=== PATIENT | female | born 1930 | race African-American/Black ===

== ENCOUNTER 2021-09-29 20:06 | Inpatient (IN) | payer OTHER ==
[~2021-09-29] VITALS: Ht 162.6 cm; Wt 89.8 kg
[2021-09-29 21:50] LABS: BASOPHILS % 0.5 % (0.0-2.0); EOSINOPHILS % 0.1 % (0.0-5.0); HEMATOCRIT. 36.5 % (36.0-48.0); HEMOGLOBIN. 11.4 g/dL (12.0-16.0); LYMPHOCYTES % 7.8 % (20.0-50.0); MEAN CORPUSCULAR HEMOGLOBIN 24.2 pg (28.0-32.0); MEAN CORPUSCULAR VOLUME 77.3 fL (81.0-99.0); MEAN PLATELET VOLUME 9.5 fl (7.4-10.4); MONOCYTES % 5.1 % (2.0-8.0); NEUTROPHILS % 86.5 % (40.0-76.0); PLATELET 158 x1000/uL (130-400); RED BLOOD CELL COUNT 4.72 mill/uL (4.2-5.4); RED CELL DISTRIBUTION WIDTH 15.8 % (11.6-14.6)
[2021-09-29 21:58] LABS: CHLORIDE 109 mEq/L (98-107)
[2021-09-29 22:03] LABS: ETHANOL BLOOD < 10 mg/dL
[2021-09-29] MEDS ORDERED: PIPERACILLIN/TAZOBACTAM 3.375GM/50ML PREMIX IV ONE (22:15)
[2021-09-29 22:16] LABS: CLARITY URINE TURBID (CLEAR); COLOR URINE DARK YELLOW (YELLOW); KETONES URINE TRACE (NEGATIVE); LEUKOCYTE ESTERASE URINE 3+ (NEGATIVE); NITRITE URINE POSITIVE (NEGATIVE); OCCULT BLOOD URINE 3+ (NEGATIVE); PROTEIN URINE 3+ (NEGATIVE); SPECIFIC GRAVITY URINE 1.022 (1.005-1.030)
[2021-09-29 22:32] LABS: *AMPHETAMINES SCREEN URINE NEGATIVE (NEGATIVE); *BARBITURATES SCREEN URINE NEGATIVE (NEGATIVE); *BENZODIAZEPINES SCREEN URINE NEGATIVE (NEGATIVE); *COCAINE SCREEN URINE NEGATIVE (NEGATIVE)
[2021-09-29 22:33] LABS: CANNABINOID URINE SCREEN NEGATIVE (NEGATIVE); METHADONE URINE SCREEN NEGATIVE (NEGATIVE); OPIATES URINE SCREEN NEGATIVE (NEGATIVE); PHENCYCLIDINE URINE SCREEN NEGATIVE (NEGATIVE)
[2021-09-29] MEDS: PIPERACILLIN/TAZ 3.375G PREMIX 50 ML IV NR ×2 (23:00→23:26)
[2021-09-29] MEDS ORDERED: IOHEXOL-350 100 ML BOTTLE ONE (23:11)
[2021-09-29] MEDS ORDERED: VANCOMYCIN 1GM PMX (XELLIA) 200 ML IV NR (23:30)
[2021-09-29] MEDS ORDERED: NALOXONE HCL 0.4 MG/ML 1ML VIAL IV PRN (23:45)
[2021-09-30] MEDS ORDERED: ACETAMINOPHEN 325MG TABLET PO PRN ×2
[2021-09-30] MEDS ORDERED: CLONIDINE 0.1MG TABLET PO PRN
[2021-09-30] MEDS ORDERED: GUAIFENESIN 200MG/10ML SUGAR FREE UDC PO PRN
[2021-09-30] MEDS ORDERED: MAGNESIUM/ALUMINUM HYDROXIDE/SIMETHICONE 30ML UDC PO PRN
[2021-09-30] MEDS ORDERED: IPRATROPIUM/ALBUTEROL 0.5-3(2.5)MG/3ML NEB NEB PRN
[2021-09-30] MEDS ORDERED: HYDROCODONE/ACETAMINOPHEN 5/325MG TABLET PO PRN
[2021-09-30] MEDS ORDERED: ONDANSETRON HCL 4MG/2ML INJ IV PRN
[2021-09-30] MEDS ORDERED: VANCOMYCIN 750MG PMX (XELLIA) 150 ML IV SCH (02:00)
[2021-09-30] MEDS ORDERED: VANCOMYCIN 750MG PREMIX 150 ML IV SCH (02:00)
[2021-09-30] MEDS ORDERED: DEXAMETHASONE 10 MG/ML VIAL IV SCH (02:15)
[2021-09-30] MEDS: IPRATROPIUM/ALBUTEROL 0.5-3(2.5)MG/3ML NEB NEB SCH ×2 (04:25→13:32)
[2021-09-30 05:20] LABS: PHOSPHORUS 2.5 mg/dL (2.5-4.9)
[2021-09-30 06:04] LABS: HEMATOCRIT. 35.6 % (36.0-48.0); HEMOGLOBIN. 11.2 g/dL (12.0-16.0); MEAN CORPUSCULAR HEMOGLOBIN 24.7 pg (28.0-32.0); MEAN CORPUSCULAR VOLUME 78.4 fL (81.0-99.0); PLATELET 118 x1000/uL (130-400); RED BLOOD CELL COUNT 4.54 mill/uL (4.2-5.4); RED CELL DISTRIBUTION WIDTH 15.9 % (11.6-14.6)
[2021-09-30 06:58] LABS: PLATELET ESTIMATE SLIGHTLY DECREASED
[2021-09-30] MEDS ORDERED: CEFTRIAXONE 1 G PREMIX 50 ML IV SCH (09:00)
[2021-09-30] MEDS ORDERED: PIPERACILLIN/TAZOBACTAM 3.375 G in DEXTROSE 5% WATER 50 ML IV SCH (09:00)
[2021-09-30] MEDS ORDERED: DEXAMETHASONE 4MG/ML 1ML VIAL IV SCH (09:00)
[2021-09-30] MEDS ORDERED: AZITHROMYCIN 500 MG in DEXT 5% WATER 250 ML IV SCH (09:00)
[2021-09-30] MEDS: ENOXAPARIN 40MG/0.4ML SYR SUBCUT SCH (09:00)
[2021-09-30 10:19] LABS: BG BASE EXCESS -2.2 mmol/L (-2.0-2.0); BG CARBOXYHEMOGLOBIN 0.5 % (0.5-1.5); BG DEOXYHEMOGLOBIN 3.1 % (0.0-5.0); BG FRACTION INSPIRED OXYGEN 100; BG HCO3 ACT 20.9 mmol/L (22.0-26.0); BG METHEMOGLOBIN 0.2 % (0.0-1.5); BG OXYGEN SATURATION 96.9 % (92.0-98.5); BG OXYHEMOGLOBIN 96.2 % (94.0-97.0); BG PCO2 30.3 mmHg (35.0-45.0); BG PH 7.457 (7.350-7.450); BG PO2 92.7 mmHg (75.0-100.0); BG SAMPLE SITE RIGHT RADIAL; BG TOTAL HEMOGLOBIN 10.9 g/dL (12.0-18.0); BG VENT MODE MASK - NRB
[2021-09-30 12:00] VITALS: BP 157/64
[2021-09-30] MEDS: FUROSEMIDE 40MG/4ML VIAL IVP SCH (13:05)
[2021-09-30] MEDS: AZITHROMYCIN 500 MG in DEXT 5% WATER 250 ML IV SCH (13:21)
[2021-09-30] MEDS: ASPIRIN 81MG TABLET PO SCH (13:30)
[2021-09-30 13:37] LABS: BG BASE EXCESS -0.4 mmol/L (-2.0-2.0); BG CARBOXYHEMOGLOBIN 0.4 % (0.5-1.5); BG DEOXYHEMOGLOBIN 9.4 % (0.0-5.0); BG FRACTION INSPIRED OXYGEN 60; BG HCO3 ACT 23.5 mmol/L (22.0-26.0); BG METHEMOGLOBIN 0.2 % (0.0-1.5); BG OXYGEN SATURATION 90.5 % (92.0-98.5); BG PCO2 35.9 mmHg (35.0-45.0); BG PH 7.434 (7.350-7.450); BG PO2 61.7 mmHg (75.0-100.0); BG SAMPLE SITE RIGHT RADIAL; BG TOTAL HEMOGLOBIN 12.1 g/dL (12.0-18.0); BG VENT MODE HIGH FLOW
[2021-09-30 14:00] VITALS: BP 157/64
[2021-09-30] MEDS ORDERED: LISI40TA13 PO (14:34)
[2021-09-30] MEDS ORDERED: MULT-1146 PO (14:34)
[2021-09-30] MEDS ORDERED: LEVO50TA8 PO (14:34)
[2021-09-30] MEDS ORDERED: WARF2.5T83 PO (14:34)
[2021-09-30] MEDS ORDERED: AMLO5TAB88 PO (14:34)
[2021-09-30 16:00] VITALS: BP 119/82
[2021-09-30 20:00] VITALS: BP 137/62
[2021-09-30] MEDS: ATORVASTATIN CALCIUM 20MG TABLET PO SCH (20:19)
[2021-10-01 00:06] VITALS: BP 126/69
[2021-10-01 04:00] VITALS: BP 136/68
[2021-10-01 06:56] LABS: HEMATOCRIT. 32.9 % (36.0-48.0); HEMOGLOBIN. 10.6 g/dL (12.0-16.0); MEAN CORPUSCULAR HEMOGLOBIN 24.5 pg (28.0-32.0); MEAN CORPUSCULAR VOLUME 75.9 fL (81.0-99.0); MEAN PLATELET VOLUME 9.7 fl (7.4-10.4); PLATELET 132 x1000/uL (130-400); RED BLOOD CELL COUNT 4.33 mill/uL (4.2-5.4); RED CELL DISTRIBUTION WIDTH 15.1 % (11.6-14.6)
[2021-10-01] MEDS: LEVOTHYROXINE SODIUM 50MCG TABLET PO SCH (07:40)
[2021-10-01 08:00] VITALS: BP 144/75
[2021-10-01] MEDS: IPRATROPIUM/ALBUTEROL 0.5-3(2.5)MG/3ML NEB NEB SCH ×4 (08:00→22:05)
[2021-10-01] MEDS: AMLODIPINE 5MG TABLET PO SCH (08:38)
[2021-10-01] MEDS: ASPIRIN 81MG TABLET PO SCH (08:39)
[2021-10-01] MEDS: CEFTRIAXONE 1,000 MG in DEXTROSE 5% WATER 50 ML IV SCH (08:40)
[2021-10-01] MEDS: ENOXAPARIN 40MG/0.4ML SYR SUBCUT SCH (08:41)
[2021-10-01] MEDS: DEXAMETHASONE 10 MG/ML VIAL IV SCH (08:41)
[2021-10-01] MEDS: FUROSEMIDE 40MG/4ML VIAL IVP SCH (08:41)
[2021-10-01] MEDS ORDERED: CEFTRIAXONE 1,000 MG in DEXTROSE 5% WATER 50 ML IV SCH (09:00)
[2021-10-01 11:10] LABS: BG BASE EXCESS 3.9 mmol/L (-2.0-2.0); BG CARBOXYHEMOGLOBIN 0.7 % (0.5-1.5); BG DEOXYHEMOGLOBIN 5.4 % (0.0-5.0); BG FRACTION INSPIRED OXYGEN 50; BG HCO3 ACT 26.7 mmol/L (22.0-26.0); BG METHEMOGLOBIN 0.1 % (0.0-1.5); BG OXYGEN SATURATION 94.6 % (92.0-98.5); BG OXYHEMOGLOBIN 93.8 % (94.0-97.0); BG PCO2 34.1 mmHg (35.0-45.0); BG PH 7.512 (7.350-7.450); BG PO2 70.4 mmHg (75.0-100.0); BG SAMPLE SITE RIGHT RADIAL; BG TOTAL HEMOGLOBIN 12.2 g/dL (12.0-18.0); BG VENT MODE HIGH FLOW
[2021-10-01 11:51] LABS: INR 1.2; PROTHROMBIN TIME 13.2 sec (9.6-11.0)
[2021-10-01 12:00] VITALS: BP 150/77
[2021-10-01 12:24] LABS: VITAMIN B12 SERUM 363 pg/mL (211-911)
[2021-10-01] MEDS: AZITHROMYCIN 500 MG in DEXT 5% WATER 250 ML IV SCH ×2 (13:00→16:17)
[2021-10-01 13:06] LABS: FOLIC ACID (FOLATE) SERUM > 20.00 ng/mL (>5.38)
[2021-10-01 13:32] LABS: NUCLEATED RED BLOOD CELLS 5 /100 WBC; PLATELET ESTIMATE NORMAL
[2021-10-01 16:00] VITALS: BP 125/62
[2021-10-01 20:00] VITALS: BP 153/69
[2021-10-01] MEDS: ATORVASTATIN CALCIUM 20MG TABLET PO SCH (20:58)
[2021-10-01] MEDS: HYDROXYZINE 25MG TABLET PO PRN (20:58)
[2021-10-01] MEDS ORDERED: LISINOPRIL 40MG TABLET PO SCH (21:00)
[2021-10-02] VITALS: BP 138/68
[2021-10-02 04:00] VITALS: BP 110/85
[2021-10-02 07:25] LABS: HEMATOCRIT. 33.1 % (36.0-48.0); HEMOGLOBIN. 10.7 g/dL (12.0-16.0); MEAN CORPUSCULAR HEMOGLOBIN 24.3 pg (28.0-32.0); MEAN PLATELET VOLUME 9.6 fl (7.4-10.4); PLATELET 132 x1000/uL (130-400); RED BLOOD CELL COUNT 4.42 mill/uL (4.2-5.4); RED CELL DISTRIBUTION WIDTH 14.9 % (11.6-14.6)
[2021-10-02 07:50] LABS: CHLORIDE 109 mEq/L (98-107)
[2021-10-02 07:54] LABS: PHOSPHORUS 2.6 mg/dL (2.5-4.9)
[2021-10-02 08:00] VITALS: BP 126/75
[2021-10-02] MEDS: ENOXAPARIN 40MG/0.4ML SYR SUBCUT SCH (08:57)
[2021-10-02] MEDS: DEXAMETHASONE 10 MG/ML VIAL IV SCH (08:58)
[2021-10-02] MEDS: AMLODIPINE 5MG TABLET PO SCH (08:58)
[2021-10-02] MEDS: FUROSEMIDE 40MG/4ML VIAL IVP SCH (08:58)
[2021-10-02] MEDS: ASPIRIN 81MG TABLET PO SCH (08:58)
[2021-10-02] MEDS: LEVOTHYROXINE SODIUM 50MCG TABLET PO SCH (08:58)
[2021-10-02] MEDS: CEFTRIAXONE 1,000 MG in DEXTROSE 5% WATER 50 ML IV SCH (09:03)
[2021-10-02 12:00] VITALS: BP 134/65
[2021-10-02] MEDS: AZITHROMYCIN 500 MG in DEXT 5% WATER 250 ML IV SCH (12:27)
[2021-10-02] MEDS: ALBUTEROL 6.7GM HFA INHALER ORI SCH ×3 (12:28→23:40)
[2021-10-02 16:00] VITALS: BP 146/76
[2021-10-02 16:34] LABS: NUCLEATED RED BLOOD CELLS 19 /100 WBC
[2021-10-02 16:35] LABS: PLATELET ESTIMATE NORMAL
[2021-10-02 20:00] VITALS: BP 116/67
[2021-10-02] MEDS: ATORVASTATIN CALCIUM 20MG TABLET PO SCH (21:28)
[2021-10-02] MEDS: HYDROXYZINE 25MG TABLET PO PRN (23:04)
[2021-10-03] VITALS: BP 125/70
[2021-10-03 04:00] VITALS: BP 141/80
[2021-10-03] MEDS: ALBUTEROL 6.7GM HFA INHALER ORI SCH ×3 (06:36→17:34)
[2021-10-03 07:32] LABS: HEMATOCRIT. 33.6 % (36.0-48.0); MEAN CORPUSCULAR HEMOGLOBIN 24.7 pg (28.0-32.0); MEAN CORPUSCULAR VOLUME 75.6 fL (81.0-99.0); MEAN PLATELET VOLUME 10.1 fl (7.4-10.4); PLATELET 134 x1000/uL (130-400); RED BLOOD CELL COUNT 4.45 mill/uL (4.2-5.4); RED CELL DISTRIBUTION WIDTH 15.1 % (11.6-14.6)
[2021-10-03] MEDS: LEVOTHYROXINE SODIUM 50MCG TABLET PO SCH (07:42)
[2021-10-03 07:54] VITALS: BP 142/65
[2021-10-03 08:00] LABS: CHLORIDE 109 mEq/L (98-107)
[2021-10-03] MEDS: ENOXAPARIN 40MG/0.4ML SYR SUBCUT SCH (08:01)
[2021-10-03] MEDS: ASPIRIN 81MG TABLET PO SCH (08:01)
[2021-10-03] MEDS: FUROSEMIDE 40MG/4ML VIAL IVP SCH (08:01)
[2021-10-03] MEDS: AMLODIPINE 5MG TABLET PO SCH (08:01)
[2021-10-03] MEDS: HYDROXYZINE 25MG TABLET PO PRN ×2 (08:01→21:10)
[2021-10-03] MEDS: DEXAMETHASONE 10 MG/ML VIAL IV SCH (08:01)
[2021-10-03 08:06] LABS: PHOSPHORUS 2.6 mg/dL (2.5-4.9)
[2021-10-03] MEDS: CEFTRIAXONE 1,000 MG in DEXTROSE 5% WATER 50 ML IV SCH (08:33)
[2021-10-03 09:07] LABS: VITAMIN D 25-OH 28.8 ng/mL (30.0-100.0)
[2021-10-03] MEDS ORDERED: PAMIDRONATE DISODIUM 60 MG in SODIUM CHLORIDE 0.9% 500 ML IV NR (10:00)
[2021-10-03] MEDS ORDERED: LIDOCAINE HCL 1% 10 MG/ML 10ML VIAL ONE (10:38)
[2021-10-03 12:00] VITALS: BP 125/62
[2021-10-03] MEDS: AZITHROMYCIN 500 MG in DEXT 5% WATER 250 ML IV SCH (12:46)
[2021-10-03 14:21] LABS: NUCLEATED RED BLOOD CELLS 3 /100 WBC; PLATELET ESTIMATE NORMAL
[2021-10-03 16:00] VITALS: BP 135/72
[2021-10-03 20:00] VITALS: BP 154/69
[2021-10-03] MEDS: ATORVASTATIN CALCIUM 20MG TABLET PO SCH (21:11)
[2021-10-04] VITALS: BP 141/57
[2021-10-04] MEDS: ALBUTEROL 6.7GM HFA INHALER ORI SCH ×5 (02:09→23:24)
[2021-10-04 04:00] VITALS: BP 145/69
[2021-10-04 07:39] LABS: CHLORIDE 104 mEq/L (98-107)
[2021-10-04 07:45] LABS: HEMOGLOBIN. 11.1 g/dL (12.0-16.0); MEAN CORPUSCULAR HEMOGLOBIN 24.3 pg (28.0-32.0); MEAN CORPUSCULAR VOLUME 76.4 fL (81.0-99.0); MEAN PLATELET VOLUME 9.8 fl (7.4-10.4); PLATELET 135 x1000/uL (130-400); RED BLOOD CELL COUNT 4.59 mill/uL (4.2-5.4); RED CELL DISTRIBUTION WIDTH 14.8 % (11.6-14.6)
[2021-10-04 07:48] LABS: PHOSPHORUS 2.3 mg/dL (2.5-4.9)
[2021-10-04 08:00] VITALS: BP 146/78
[2021-10-04] MEDS: LEVOTHYROXINE SODIUM 50MCG TABLET PO SCH (08:21)
[2021-10-04] MEDS: ASPIRIN 81MG TABLET PO SCH (08:21)
[2021-10-04] MEDS: CEFTRIAXONE 1,000 MG in DEXTROSE 5% WATER 50 ML IV SCH (08:21)
[2021-10-04] MEDS: AMLODIPINE 5MG TABLET PO SCH (08:21)
[2021-10-04] MEDS: ENOXAPARIN 40MG/0.4ML SYR SUBCUT SCH (08:21)
[2021-10-04] MEDS: DEXAMETHASONE 10 MG/ML VIAL IV SCH (08:22)
[2021-10-04] MEDS: FUROSEMIDE 40MG/4ML VIAL IVP SCH (08:22)
[2021-10-04] MEDS ORDERED: POTASSIUM-SODIUM PHOSPHATE POWDER PACKET PO SCH (08:30)
[2021-10-04] MEDS ORDERED: POTASSIUM PHOS,M-BASIC-D-BASIC 15 MMOL in DEXT 5% WATER 245 ML IV NR (11:00)
[2021-10-04] MEDS: AZITHROMYCIN 500 MG in DEXT 5% WATER 250 ML IV SCH (12:07)
[2021-10-04 12:41] LABS: NUCLEATED RED BLOOD CELLS 1 /100 WBC
[2021-10-04 12:42] LABS: PLATELET ESTIMATE NORMAL
[2021-10-04 16:00] VITALS: BP 143/76
[2021-10-04 16:16] VITALS: BP 143/76
[2021-10-04 20:00] VITALS: BP 142/74
[2021-10-04] MEDS: ATORVASTATIN CALCIUM 20MG TABLET PO SCH (22:47)
[2021-10-05] VITALS: BP 137/75
== END 2021-10-05 00:58 | disposition short-term general hospital (02) | DRG 871 ==
LOC: ER 20:06 → MICUSO 23:33 → SUPCPDRO 23:44 → 7WST 09-30 11:09 → 7EST 10-04 16:24
PROVIDERS: ADMIT Internal Medicine; ATTEND Internal Medicine
PROC: 5A0945A Assistance with Respiratory Ventilation, 24-96 Consecutive Hours, High Flow/Velocity Cannula (ICD-10-PCS; 2021-09-29)
PROC: 05HY33Z Insertion of Infusion Device into Upper Vein, Percutaneous Approach (ICD-10-PCS; principal; 2021-10-03)
PROC: B54MZZA Ultrasonography of Right Upper Extremity Veins, Guidance (ICD-10-PCS; 2021-10-03)
DX: A41.89 Other specified sepsis (principal); U07.1 COVID-19; J12.82 Pneumonia due to coronavirus disease 2019; G93.41 Metabolic encephalopathy; I21.4 Non-ST elevation (NSTEMI) myocardial infarction; J96.01 Acute respiratory failure with hypoxia; J15.9 Unspecified bacterial pneumonia; N17.9 Acute kidney failure, unspecified; I13.0 Hypertensive heart and chronic kidney disease with heart failure and stage 1 through stage 4 chronic kidney disease, or unspecified chronic kidney disease; E87.3 Alkalosis; A41.51 Sepsis due to Escherichia coli [E. coli]; I48.91 Unspecified atrial fibrillation; D50.9 Iron deficiency anemia, unspecified; E83.52 Hypercalcemia; R65.20 Severe sepsis without septic shock; N30.90 Cystitis, unspecified without hematuria; I27.20 Pulmonary hypertension, unspecified; R74.01 Elevation of levels of liver transaminase levels; J32.9 Chronic sinusitis, unspecified; D69.6 Thrombocytopenia, unspecified; E83.39 Other disorders of phosphorus metabolism; F03.90 Unspecified dementia, unspecified severity, without behavioral disturbance, psychotic disturbance, mood disturbance, and anxiety; J32.8 Other chronic sinusitis; N18.9 Chronic kidney disease, unspecified; I25.10 Atherosclerotic heart disease of native coronary artery without angina pectoris; E03.9 Hypothyroidism, unspecified; I50.9 Heart failure, unspecified; Z78.1 Physical restraint status; Z79.01 Long term (current) use of anticoagulants; Z95.0 Presence of cardiac pacemaker; Z82.49 Family history of ischemic heart disease and other diseases of the circulatory system
CPT/HCPCS: 36415; 36600; 71045; 71275; 74174; 76937; 80048; 80053; 80305; 80320; 81003; 82306; 82330; 82375; 82607; 82728; 82746; 82784; 82805; 82962; 83605; 83615; 83735; 83880; 83970; 84100; 84145; 84443; 84484; 85025; 86140; 86334; 87077; 87186; 87426; 92610; 93005; 94640; 97162; 97165; 99291; C1725; C1769; C1893; J0456; J0696; J1100; J1650; J1940; J2430; J2543; J3370; J3490; J7040; J7060; Q9967; A4315; G0480